=== PATIENT | male | born 2000 | race Caucasian/White ===

== ENCOUNTER 2022-04-21 01:31 | Emergency (ER) | payer SELFPAY ==
[~2022-04-21] VITALS: Ht 185.4 cm; Wt 81.6 kg
[2022-04-21 01:35] VITALS: BP 105/60
--- NOTE | 2022-04-21 01:35 | NUR ---
RAMONE FROM [facility] WITH C/O ETOH. PT ADMITTED TO DRINKING SEVERAL BEERS AND VODKA. PT ANSWERS QUESTIONS SLOWLY AND KEEPS HIS EYES CLOSED. ATTACHED TO CM = SR. PT DENIES PAIN OR DISCOMFORT PMH : DENIES
--- NOTE | 2022-04-21 01:36 | NUR ---
PT BROUGHT TO BED 5 VIA AP GALLOWAY
--- NOTE | 2022-04-21 02:08 | NUR ---
PER [employer], STUDENTS ARRANGE FOR UBER TO [facility] [phone]
--- NOTE | 2022-04-21 03:00 | NUR ---
RESTING IN BED WITH EYES CLOSED, RESPIRATIONS REGULAR AND UNLABORED
--- NOTE | 2022-04-21 06:53 | NUR ---
PT AMBULATED TO RESTROOM UNASSISTED
--- NOTE | 2022-04-21 07:24 | NUR ---
FRIEND YEISON [phone] CALLED REQUESTING INFO, STATED SHE IS AVAILABLE FOR TRANSPORT
[2022-04-21 07:59] VITALS: BP 103/67
--- NOTE | 2022-04-21 07:59 | NUR ---
PT REPORTS HE IS GOING TO GET HIS OWN UBER HOME. PT A/O X4, AMBULATORY WITH STEADY GAIT.
--- NOTE | 2022-04-21 08:00 | NUR ---
Patient discharged with v/s stable. Written and verbal after care instructions ABOUT ALCOHOL INTOXICATION given and explained. Patient verbalized understanding. Ambulatory with steady gait. All questions addressed prior to discharge. Advised to follow up with PMD.
== END 2022-04-21 08:00 | disposition home or self-care (01) ==
LOC: MED 01:31
DX: F10.129 Alcohol abuse with intoxication, unspecified (principal); Y90.9 Presence of alcohol in blood, level not specified
CPT/HCPCS: 36415; 99285; G0482